=== PATIENT | male | born 1960 | race Caucasian/White ===

== ENCOUNTER 2017-09-04 17:05 | Emergency (ER) | payer OTHER ==
[~2017-09-04] VITALS: Ht 165.1 cm; Wt 104.3 kg
[2017-09-04 17:15] VITALS: BP 180/117
[2017-09-04 17:31] LABS: ABSOLUTE BASOPHIL COUNT 0 /CUMM (0.0-0.2); ABSOLUTE EOSINOPHIL COUNT 0.3 /CUMM (0.0-0.7); ABSOLUTE GRANULOCYTE CT 6.6 /CUMM (1.4-6.5); ABSOLUTE LYMPH COUNT 2.5 /CUMM (1.2-3.4); ABSOLUTE MONOCYTE COUNT 0.7 /CUMM (0.10-0.60); BASOPHIL % 0.4 % (0.0-2.0); EOSINOPHIL % 2.8 % (0-5); GRANULOCYTE % 65.4 % (42.2-75.2); HEMATOCRIT 40.3 % (42-52); MEAN CORPUSCULAR HGB 30.3 PG (27.0-31.0); MEAN CORPUSCULAR HGB CONC 34.2 G/DL (33.0-37.0); MEAN CORPUSCULAR VOLUME 88.7 FL (80.0-94.0); MEAN PLATELET VOLUME 7.6 FL (7.4-10.4); PLATELET COUNT 268 /CUMM (130-400); RBC DISTRIBUTION WIDTH 12.8 % (11.5-14.5); RED BLOOD CELL CT 4.55 /CUMM (4.70-6.10); WHITE BLOOD CELL COUNT 10.1 /CUMM (4.8-10.8)
--- NOTE | 2017-09-04 18:53 | CT SCAN REPORT ---
EXAMINATION: CT ABDOMEN AND PELVIS WITHOUT CONTRAST CLINICAL INFORMATION: Left-sided back pain. Left-sided flank pain. COMPARISON: None. TECHNIQUE: Multidetector volumetric imaging was performed from the superior aspect of the liver through the pubic symphysis. Sagittal and coronal reformatted images were obtained on the technologist's workstation. DLP: 953.42 mGy-cm FINDINGS: LUNG BASES: The visualized lung bases are unremarkable. LIVER, GALLBLADDER, AND BILIARY TREE: There is diffuse low attenuation of liver parenchyma due to fatty change. There is no focal liver lesion or intrahepatic bile duct dilatation. The right lobe of the liver measures 21 cm superior inferior. The gallbladder is unremarkable with no evidence of radiopaque gallstones, gallbladder wall thickening, or obvious pericholecystic inflammatory changes. PANCREAS: Unremarkable. SPLEEN: Unremarkable. ADRENAL GLANDS: Unremarkable. KIDNEYS AND URETERS: There is a stone in the proximal left ureter just distal to the ureteropelvic junction measuring 6 x 4 mm. The renal pelvis and calyces on the left are moderately distended. Within the left renal pelvis is a large stone. This measures 3 x 2 x 1 cm and has a density measurement of 622. This stone lies about 13.5 cm from the posterior lateral skin line. There are a couple of 1 mm and smaller stones at the lower pole cortex of left kidney. The renal pelvis and calyces and ureter of the right kidney are also dilated, moderate hydronephrosis. There is a 1 mm stone at the right ureterovesical junction, axial image 69 (2). There are also nonobstructive stones in the right kidney. There is a 2 mm nonobstructive stone in the lower pole of the right kidney. At the mid lower pole there is an additional stone measuring about 6 x 3 mm. In the midpole cortex of the right kidney there is a 1.8 cm cortical cyst. BLADDER: The bladder is partially filled. There is diffuse bladder wall thickening measuring up to a diameter of about 1 cm with no edema around the bladder. GASTROINTESTINAL TRACT: There is no acute change of the bowel. There is no bowel obstruction. There is no bowel wall thickening or edema. There is a moderate volume of stool throughout the colon. The appendix is normal. The small bowel loops are unremarkable. ABDOMINAL WALL: There are bilateral fat-containing inguinal hernias. The hernia on the right measures 2.8 cm and on the left 1.6 cm in the AP dimension. LYMPH NODES: Normal. VASCULAR: There are scattered vascular wall calcifications of the distal aorta. There is no aneurysm. PELVIC VISCERA: Prostate measures 5.2 cm transverse. OSSEOUS STRUCTURES: There is degenerative spondylosis of spine with multilevel endplate spurring. There is vacuum disc phenomena L4-L5 and L5-S1 with degenerative facet joint arthrosis at lower lumbar spine. IMPRESSION: 1. Moderate hydronephrosis of left kidney due to an obstructing stone just distal to the left ureteropelvic junction measuring 6 x 4 mm. There are additional stones in the left kidney including a large stone in the renal pelvis. 2. There is a 2 mm stone at the right ureterovesical junction causing moderate hydronephrosis of the right kidney. There are additional small stones in the right kidney. 3. Mild hepatomegaly with diffuse fatty change of the liver.
--- NOTE | 2017-09-04 20:33 | ED GI/GU/ABDOMINAL COMPLAINT ---
History of Present Illness General Chief Complaint: General Adult Stated Complaint: PT IS PASSING A KIDNEY STONE Source: patient, family Exam Limitations: no limitations Vital Signs & Intake/Output Vital Signs & Intake/Output Vital Signs Date Time Temp Pulse Resp B/P B/P Pulse O2 O2 Flow FiO2 Mean Ox Delivery Rate 09/04 1715 98.0 87 18 180/117 99 Room Air Allergies Uncoded Allergies: NONE (Intermediate, NONE 09/04/17) Reconcile Medications Tamsulosin HCl (Flomax) 0.4 MG CAP.ER.24H 1 CAP PO DAILY PRN kidney stone Tramadol HCl 50 MG TABLET 1 TAB PO BIDP PRN severe pain Triage Note: C/O PAIN IN LEFT FLANK SINCE LAST PM, STAES HE PASSED 2 STONES THIS AM, HAS HAD BLOOD IN URINE X 1 MONTH. Triage Nurses Notes Reviewed? yes Onset: Gradual Duration: waxing and waning Timing: remote history Quality/Severity: sharpness Severity Numbers: 4 Location: left flank Radiation: no radiation Activities at Onset: none Prior Abdominal Problems: similar symptoms Past Sexual History: Unobtainable at this time No Modifying Factors: none HPI: Patient is a 57-year-old male with history of kidney stones presenting to the emergency department with chief complaint of intermittent left flank pain 1 week worse over the past one day. Patient reports that when the pain comes it can be sharp and stabbing. Pain currently 4 out of 10. Improved after IM Toradol that was given at triage. No nausea or vomiting. Denies chest pain palpitations or shortness of breath. He did notice his urine has been darker for the past one month denies any overt hematuria. No dysuria. Denies frequency or urgency. History of lithotripsy and stents in the past. Has not seen urology in 5 years. Has been eating and drinking well. Denies taking anything for pain prior to arrival. (Marisabel Son) Past History Travel History Traveled to [place] past 21 day No Medical History Any Pertinent Medical History? see below for history Endocrine: diabetes Surgical History Surgical History: lithotripsy Psychosocial History What is your primary language Bengali Tobacco Use: Never used ETOH Use: denies use Family History Hx Contributory? No (Marisabel Son) Review of Systems Review of Systems Constitutional: Reports: no symptoms. Comments Review of systems: See HPI, All other systems negative. Constitutional, no chills fever or weight loss HEENT: No visual changes no sore throat no congestion Cardiovascular: No chest pain ,palpitation , orthopnea or ankle swelling Skin, no jaundice no rashes Respiratory: No dyspnea cough sputum or hemoptysis GI: No nausea no vomiting : No dysuria No hematuria Muscle skeletal: no back pain, no neck pain, Neurologic: No numbness no confusion Psych: No stress anxiety or depression,. Heme/endocrine: No bruising no bleeding no polyuria or polydipsia Immunology: No splenectomy or history of AIDS (Marisabel Son) Physical Exam Physical Exam General Appearance: well developed/nourished, no apparent distress, alert, awake , anxious, comfortable Gastrointestinal: normal bowel sounds, soft, non-tender Comments: Well-developed well-nourished person in no acute distress HEENT: Atraumatic, normocephalic Neck: Normal inspection Back: Nontender, no CVA tenderness. Full range of motion Cardiovascular: Regular rate and rhythms Respiratory: Chest nontender. No respiratory distress.breath sounds clear to auscultation bilaterally Abdomen: Soft, obese, nontender nondistended, no appreciable organomegaly. Normal bowel sounds. No ascites. Small umbilical hernia is reducible present. Extremity: No edema Neuro: Alert oriented x3 Skin: No appreciable rash on exposed skin, skin is warm and dry. Psych: Mood and affect is normal, memory and judgment is normal. Core Measures ACS in differential dx? No Sepsis Present: No Sepsis Focused Exam Completed? No (Marisabel Son) Progress Differential Diagnosis: UTI, pyelonephritis, hydronephrosis, ureterolithiasis, nephrolithiasis, renal colic and dehydration, electrolyte abnormality, diverticulitis Plan of Care: Orders Procedure Date/time Status URINALYSIS 09/04 1713 Complete COMPREHENSIVE METABOLIC PANEL 09/04 1713 Complete CBC WITHOUT DIFFERENTIAL 09/04 1713 Complete Laboratory Tests 09/04/17 173: Urine Color YEL, Urine Clarity CLEAR, Urine pH 6.0, Ur Specific [place] 1.025, Urine Protein 100 H, Urine Ketones NEG, Urine Nitrite NEG, Urine Bilirubin NEG, Urine Urobilinogen 0.2, Ur Leukocyte Esterase NEG, Ur Microscopic SEDIMENT EXAMINED, Urine RBC 15-25 H, Urine WBC RARE, Urine Bacteria RARE H, Urine Hemoglobin LARGE H, Urine Glucose NEG 09/04/17 1722: Anion Gap 15, Estimated GFR > 60, BUN/Creatinine Ratio 30.0 H, Glucose 158 H, Calcium 10.1, Total Bilirubin 0.6, AST 31, ALT 33, Alkaline Phosphatase 119, Total Protein 8.0, Albumin 4.7, Globulin 3.3, Albumin/Globulin Ratio 1.4, CBC w Diff NO MAN DIFF REQ, RBC 4.55 L, MCV 88.7, MCH 30.3, MCHC 34.2, RDW 12.8, MPV 7.6, Gran % 65.4, Lymphocytes % 24.4, Monocytes % 7.0, Eosinophils % 2.8, Basophils % 0.4, Absolute Granulocytes 6.6 H, Absolute Lymphocytes 2.5, Absolute Monocytes 0.7 H, Absolute Eosinophils 0.3, Absolute Basophils 0 09/04/2017 8:33:11 PM patient is well-appearing, afebrile, no elevation in white blood cell count, no signs of urinary tract infection. BUN slightly elevated. Patient educated on increasing fluids. Patient refusing IV fluids at this time. Awaiting callback from urology. 09/04/2017 8:42:[address] Staples covering urology, recommending patient go home with pain medication, nothing by mouth after midnight in case pain gets worse he may need to place a stent or perform lithotripsy. Patient will be contacted first aid in the morning. Educated on signs and symptoms return to the emergency department. Patient is afebrile, nontoxic, pain well controlled. Diagnostic Imaging: Viewed by Me: CT Scan. Discussed w/RAD: CT Scan. Radiology Impression: PATIENT: CORY ALVAREZ PRESENT AGE: 57 PATIENT ACCOUNT NO: [id number] : 56 LOCATION: [facility] ORDERING PHYSICIAN: Luther CRISOSTOMO SERVICE DATE: 09/04/17 EXAM TYPE: CAT - CT ABD & PELVIS W/O IV CONTRAS EXAMINATION: CT ABDOMEN AND PELVIS WITHOUT CONTRAST CLINICAL INFORMATION: Left-sided back pain. Left-sided flank pain. COMPARISON: None. TECHNIQUE: Multidetector volumetric imaging was performed from the superior aspect of the liver through the pubic symphysis. Sagittal and coronal reformatted images were obtained on the technologist's workstation. DLP: 953.42 mGy-cm FINDINGS: LUNG BASES: The visualized lung bases are unremarkable. LIVER, GALLBLADDER, AND BILIARY TREE: There is diffuse low attenuation of liver parenchyma due to fatty change. There is no focal liver lesion or intrahepatic bile duct dilatation. The right lobe of the liver measures 21 cm superior inferior. The gallbladder is unremarkable with no evidence of radiopaque gallstones, gallbladder wall thickening, or obvious pericholecystic inflammatory changes. PANCREAS: Unremarkable. SPLEEN: Unremarkable. ADRENAL GLANDS: Unremarkable. KIDNEYS AND URETERS: There is a stone in the proximal left ureter just distal to the ureteropelvic junction measuring 6 x 4 mm. The renal pelvis and calyces on the left are moderately distended. Within the left renal pelvis is a large stone. This measures 3 x 2 x 1 cm and has a density measurement of 622. This stone lies about 13.5 cm from the posterior lateral skin line. There are a couple of 1 mm and smaller stones at the lower pole cortex of left kidney. The renal pelvis and calyces and ureter of the right kidney are also dilated, moderate hydronephrosis. There is a 1 mm stone at the right ureterovesical junction, axial image 69 (2). There are also nonobstructive stones in the right kidney. There is a 2 mm nonobstructive stone in the lower pole of the right kidney. At the mid lower pole there is an additional stone measuring about 6 x 3 mm. In the midpole cortex of the right kidney there is a 1.8 cm cortical cyst. BLADDER: The bladder is partially filled. There is diffuse bladder wall thickening measuring up to a diameter of about 1 cm with no edema around the bladder. GASTROINTESTINAL TRACT: There is no acute change of the bowel. There is no bowel obstruction. There is no bowel wall thickening or edema. There is a moderate volume of stool throughout the colon. The appendix is normal. The small bowel loops are unremarkable. ABDOMINAL WALL: There are bilateral fat-containing inguinal hernias. The hernia on the right measures 2.8 cm and on the left 1.6 cm in the AP dimension. LYMPH NODES: Normal. VASCULAR: There are scattered vascular wall calcifications of the distal aorta. There is no aneurysm. PELVIC VISCERA: Prostate measures 5.2 cm transverse. OSSEOUS STRUCTURES: There is degenerative spondylosis of spine with multilevel endplate spurring. There is vacuum disc phenomena L4-L5 and L5-S1 with degenerative facet joint arthrosis at lower lumbar spine. IMPRESSION: 1. Moderate hydronephrosis of left kidney due to an obstructing stone just distal to the left ureteropelvic junction measuring 6 x 4 mm. There are additional stones in the left kidney including a large stone in the renal pelvis. 2. There is a 2 mm stone at the right ureterovesical junction causing moderate hydronephrosis of the right kidney. There are additional small stones in the right kidney. 3. Mild hepatomegaly with diffuse fatty change of the liver. DICTATED BY: Jg Mcdonald MD DATE/TIME DICTATED:09/04/171804 CATALYTIC CONVERTER OPERATOR HELPER:WYATT DATE/TIME TRANSCRIBED:09/04/171804 CONFIDENTIAL, DO NOT COPY WITHOUT APPROPRIATE AUTHORIZATION. <Electronically signed in Other Vendor System> SIGNED BY: Jg Mcdonald MD 09/04/171852 Initial ED EKG: none (Marisabel Son) Departure Departure Time of Disposition: 2041 Disposition: HOME OR SELF CARE Condition: Stable Clinical Impression Primary Impression: Ureterolithiasis Referrals: Jhoan PALACIO,Pablo Unknown (PCP/Family) Additional Instructions: Follow-up with urology, they will call you first thing in the morning to schedule an appointment. Do not see or drink after midnight in case a procedure needs to be done in order to remove the stone, only take sips of water to take pain medications as needed.. Take pain medications as prescribed. Take Flomax to help pass the stone. Use strainer when urinating. Return for worsening symptoms or concerns. Departure Forms: Customer Survey General Discharge Information Prescriptions: Current Visit Scripts Tamsulosin HCl (Flomax) 1 CAP PO DAILY PRN kidney stone #15 CAP Tramadol HCl 1 TAB PO BIDP PRN severe pain #10 TAB (Marisabel Son) PA/BRONZE CHASER Co-Sign Statement Statement: ED Attending supervision documentation- [] I saw and evaluated the patient. I have also reviewed all the pertinent lab results and diagnostic results. I agree with the findings and the plan of care as documented in the PA's/BRONZE CHASER's documentation. [x] I have reviewed the ED Record and agree with the PA's/BRONZE CHASER's documentation. [] Additions or exceptions (if any) to the PAs/BRONZE CHASER's note and plan are summarized below: [] (Kinjal PALACIO,Timmy Rosario) ED Attending Observation Initial Observation Note: I have seen and personally examined CORY ALVAREZ on 09/04/17 at 2041. I agree with the current emergency department documentation. The disposition (admission or discharge) is uncertain at this time, he needs a period of observation for the following reason(s): The ED Nurse caring for this patient has been personally informed as to what the patient is being observed for. (Ruma CRISOSTOMO,Marisabel)
[2017-09-04] MEDS ORDERED: TRAMADOL HCL50 M1 PO (20:35)
[2017-09-04] MEDS ORDERED: FLOMAX0.4 M1 PO (20:35)
== END 2017-09-04 20:50 ==
LOC: ERH 17:05
PROVIDERS: Physician Assistant Medical
DX: N20.1 Calculus of ureter (principal); R10.9 Unspecified abdominal pain
CPT/HCPCS: 74176; 81001; 96372; J1885; J3101